=== PATIENT | female | born 1945 | race Caucasian/White ===

== ENCOUNTER 2022-07-24 13:31 | Outpatient (REF) | payer MEDICARE, SELFPAY ==
--- NOTE | ~2022-07-24 | MM_ITS ---
EXAMINATION: MM SCREENING DIGITAL BREAST TOMOSYNTHESIS, BILATERAL CLINICAL INFORMATION: Screening. Asymptomatic. The lifetime risk of breast cancer based on the Tyrer-Cuzick Model is 3%. COMPARISON: Multiple prior mammography exams including most recent 03/18/2019. TECHNIQUE: Digital breast tomosynthesis is performed in both the craniocaudal and mediolateral oblique views along with computer-aided detection (CAD). Synthesized 2D images are generated from the tomosynthesis. FINDINGS: There are scattered areas of fibroglandular density (ACR BI-RADS breast composition Category b). There are no significant masses, abnormal calcifications, or other abnormalities. Parenchymal pattern is similar to prior studies. There is a chronic minor parenchymal asymmetry medial right breast similar to prior studies. There is no developing density or architectural abnormality. The axilla and skin contours are unremarkable. No significant changes. MM/MM tomosynthesis screening BI IMPRESSION: No mammographic evidence of malignancy. ASSESSMENT: BI-RADS 2: Benign RECOMMENDATION: Routine annual mammography screening. This patient's information was entered into a reminder system with a target due date for their next mammogram.
== END 2022-07-24 13:32 | disposition home or self-care (01) ==
LOC: HO.MAMMO 13:31
PROVIDERS: PCP Internal Medicine; Visit Provider Internal Medicine
DX: Z12.31 Encounter for screening mammogram for malignant neoplasm of breast (principal)
CPT/HCPCS: 77063; 77067

== ENCOUNTER 2023-05-09 16:43 | Emergency (ER) | payer MEDICARE, SELFPAY ==
--- NOTE | ~2023-05-09 | CT_ITS ---
EXAMINATION: CT ABDOMEN AND PELVIS WITHOUT CONTRAST CLINICAL INFORMATION: Upper abdominal pain COMPARISON: None available. TECHNIQUE: Multidetector volumetric imaging was performed from the superior aspect of the liver through the pubic symphysis. Sagittal and coronal reformatted images were obtained on the technologist's workstation. This CT examination was performed using dose optimization techniques as appropriate, variously including the following: *Automated exposure control *Adjustment of mA and/or kV according to patient size (this includes techniques or standardized protocols for targeted exams where dose is matched to indication/reason for exam; i.e. extremities or head) *Use of iterative reconstruction technique DLP: 860 mGy-cm FINDINGS: LUNG BASES: The visualized lung bases are unremarkable. LIVER, GALLBLADDER, AND BILIARY TREE: The liver is normal in size, shape, and attenuation. No focal hepatic lesion or biliary ductal dilatation is present. Gall stones. PANCREAS: Unremarkable. SPLEEN: Unremarkable. ADRENAL GLANDS: Unremarkable. KIDNEYS AND URETERS: The kidneys are normal in size, shape, and attenuation. No hydronephrosis, hydroureter, or calculi seen. No perinephric stranding. BLADDER: Unremarkable. GASTROINTESTINAL TRACT: Constipation. The small and large bowel are otherwise unremarkable. The appendix is is not seen and may been removed. ABDOMINAL WALL: No significant hernia is appreciated. LYMPH NODES: Normal. VASCULAR: Atherosclerotic disease. PELVIC VISCERA: Unremarkable. OSSEOUS STRUCTURES: Old displaced right femoral neck fracture. Large complex right hip joint effusion. Question old trauma to the pelvis. 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 Osteopenia. Probable L4 hemangioma. CT/CT abdomen pelvis wo IV con IMPRESSION: Gallstones. Constipation. Old trauma to the right hip and pelvis. Fleischner guidelines were followed.
[2023-05-09 16:59] VITALS: BP 159/72; PULSE 87; RESP 16; TEMP 37; O2SAT 95
[2023-05-09 17:05] VITALS: BP 160/72; PULSE 80; BMI 27.8
--- NOTE | 2023-05-09 17:05 | ED_ITS ---
HPI - Abdominal Pain General Chief Complaint: Abdominal Pain Stated Complaint: abdominal pain upon ambulation. No BM x48 hrs Time Seen by Provider: 05/09/23 17:04 Source: patient Mode of arrival: EMS Limitations: no limitations History of Present Illness HPI narrative: Patient history of MS in remission history of constipation complaining of upper abdominal pain for last 2 weeks does not remember when she had the bowel movement no nausea no vomiting no urinary complaints Related Data Previous Rx's Medication Instructions Recorded polyethylene glycol 3350 17 17 g PO DAILY PRN constipation 05/09/23 gram/dose oral powder (Miralax) #510 grams Allergies Allergy/AdvReac Type Severity Reaction Status Date / Time azithromycin Allergy Severe DIZZINESS, Verified 05/09/23 17:43 [From ZITHROMAX Z-BEBETO] NAUSEA, DIARRHEA, HADACHE Review of Systems Review of Systems Yes all other systems are reviewed and are negative [facility] Social History Social History Smoked in Last 30 Days: No Use of substances other than those prescribed or required for medical reasons: No Advance Directives: No Advance Directives Information Provided: No Physical Exam ED Vital Signs: Vital Signs - 24 hr 05/09/23 16:59 05/09/23 20:35 05/09/23 22:29 Temperature 98.6 F 98.6 F 98.6 F Pulse Rate 87 84 84 Respiratory Rate 16 16 16 Blood Pressure 159/72 H 157/58 H 157/58 H Pulse Oximetry 95 92 92 Oxygen Delivery Method Room Air Room Air Room Air BMI result Body Mass Index 27.8 Appearance: Alert. Oriented X3. No acute distress. Eyes: No pallor ENT: Pharynx normal. Oral Mucosa moist Neck: Normal inspection. Neck supple. CVS: Normal heart rate and rhythm. Pulses normal. Respiratory: No respiratory distress. Equal air entry bilateral, no wheezing/rales/rhonchi Abdomen: Soft and nontender. Mild epigastric tenderness no rebound tenderness Bowel sounds are present, no mass palpable, no CVA tenderness Skin: Skin warm and dry. Normal skin color. Normal skin turgor. Extremities: No lower extremity edema. No calf tenderness Neuro: Oriented X 3. No motor deficit. Medical Decision Making Medical Decision Making MDM Narrative: Patient with known specific abdominal pain CT scan negative except for stool patient was given stool softener discharge patient home Differential Diagnosis Differential Diagnoses: The differential diagnosis associated with the presentation includes Diverticulitis/constipation/partial bowel obstruction Lab Data MDM Lab Attestation statement: I reviewed the patient's lab results. 05/09/23 17:41 05/09/23 17:41 Labs: Lab Results 05/09/23 Range/Units 17:41 WBC 6.8 (4.8-10.8) X10*3/uL RBC 4.23 (4.20-5.50) X10*6/uL Hgb 11.8 L (12.0-16.0) g/dl Hct 36.8 L (37.0-47.0) % MCV 87.0 (80.0-98.0) fL MCH 27.9 (27.0-33.0) pg MCHC 32.1 (31.0-35.0) g/dl RDW 13.8 (11.0-16.0) % Plt Count 220 (160-400) X10*3/uL MPV 8.6 L (9.4-12.3) fL Immature Gran % (Auto) 0.6 H (0.0-0.4) % Neut % (Auto) 80.7 H (45-73) % Lymph % (Auto) 9.2 L (20-40) % Bee % (Auto) 8.6 (2-11) % Eos % (Auto) 0.3 (0-4) % Baso % (Auto) 0.6 (0-2) % Lymph # (Auto) 0.6 L (1.2-4.9) X10*3/uL Bee # (Auto) 0.6 (0.1-1.2) X10*3/uL Eos # (Auto) 0.0 (0.0-0.4) X10*3/uL Baso # (Auto) 0.0 (0.0-0.2) X10*3/uL Abs Immat Gran (auto) 0.04 H (0.00-0.03) X10*3/uL Absolute Neuts (auto) 5.5 (2.0-8.3) x10*3/uL Absolute Nucleated RBC 0.000 (0.0-0.012) X10*3/uL Nucleated RBC % (auto) 0.0 (0.0-0.2) /100WBC Sodium 143 (135-145) mmol/L Potassium 3.0 L (3.3-5.1) mmol/L Chloride 103 (96-108) mmol/L Carbon Dioxide 31 H (22-29) mmol/L Anion Gap 12 (12-20) BUN 9 (9-16) mg/dL Creatinine 0.67 (0.5-1.4) mg/dL Estim Creat Clear Calc 70.5 Estimated GFR > 60 Random Glucose 108 (60-115) mg/dL Calcium 8.8 (8.4-10.2) mg/dL Total Bilirubin 0.8 (0.0-1.0) mg/dL AST 23 (5-31) U/L ALT 20 (0-31) U/L Alkaline Phosphatase 91 (39-117) U/L Total Protein 6.5 (6.5-8.0) g/dL Albumin 3.4 L (3.5-5.0) g/dL Lipase 8 (8-78) U/L Independent Interpretation I performed an independent interpretation of an: CT Scan Radiology Impression Discussion of test interpretation with radiology: I have reviewed the radiologist's reading. Medications Administered Discontinued Medications Generic Name Dose Route Start Last Admin Trade Name Freq PRN Reason Stop Dose Admin Sodium Chloride 1,000 mls @ 999 mls/hr 05/09/23 17:12 05/09/23 19:19 Ns IV 05/09/23 18:12 Infused .Q1H1M ONE Infusion Magnesium Hydroxide 30 ml 05/09/23 18:54 05/09/23 19:27 Milk Of Magnesia 30 Ml Oral.Susp PO 05/09/23 18:55 30 ml ONCE ONE Administration Potassium Bicarbonate 25 meq 05/09/23 18:54 05/09/23 19:27 Potassium Bicarbonate/Cit Ac 25 Meq Tablet.Eff PO 05/09/23 18:55 25 meq ONCE ONE Administration Discharge Plan Discharge Clinical Impression: Abdominal pain, Constipation Patient Disposition: Home, Self-Care Instructions: Constipation (ED) Prescriptions: New polyethylene glycol 3350 [Miralax] 17 gram/dose powder 17 g PO DAILY PRN (Reason: constipation) Qty: 510 0RF Interventions: ED Discharge Assessment Last Done: 05/09/23 22:29 Discharge Date/Time: 05/09/23 22:31
[2023-05-09] MEDS: 0.9 % Sodium Chloride 1,000 ML 999 ML IV (17:43)
[2023-05-09 17:46] LABS: MANUAL DIFF FLAG NO
[2023-05-09 17:48] LABS: Basophils Percent Auto 0.6 % (0-2); Eosinophils Percent Auto 0.3 % (0-4); Hematocrit 36.8 % (37.0-47.0); Hemoglobin 11.8 g/dl (12.0-16.0); Imm Gran Abs Auto 0.04 X10*3/uL (0.00-0.03); Imm Gran Pct Auto 0.6 % (0.0-0.4); Lymphocytes Absolute Auto 0.6 X10*3/uL (1.2-4.9); Lymphocytes Percent Auto 9.2 % (20-40); Mean Corpuscular HGB Conc 32.1 g/dl (31.0-35.0); Mean Corpuscular Hemoglobin 27.9 pg (27.0-33.0); Mean Platelet Volume 8.6 fL (9.4-12.3); Monocytes Absolute Auto 0.6 X10*3/uL (0.1-1.2); Monocytes Percent Auto 8.6 % (2-11); Neutrophils Absolute Auto 5.5 x10*3/uL (2.0-8.3); Neutrophils Percent Auto 80.7 % (45-73); Platelet Count 220 X10*3/uL (160-400); Red Blood Count 4.23 X10*6/uL (4.20-5.50); Red Cell Distribution Width 13.8 % (11.0-16.0); White Blood Count 6.8 X10*3/uL (4.8-10.8)
[2023-05-09 18:01] LABS: Alanine Aminotransferase 20 U/L (0-31); Albumin Level 3.4 g/dL (3.5-5.0); Alkaline Phosphatase 91 U/L (39-117); Anion Gap 12 (12-20); Aspartate Amino Transferase 23 U/L (5-31); Bilirubin Total 0.8 mg/dL (0.0-1.0); Blood Urea Nitrogen 9 mg/dL (9-16); Calcium 8.8 mg/dL (8.4-10.2); Carbon Dioxide 31 mmol/L (22-29); Chloride 103 mmol/L (96-108); Creatinine Clr Calc Pharmacy 70.5; Estimated Glomerular Filt Rate > 60; Glucose Random 108 mg/dL (60-115); Lipase 8 U/L (8-78); Sodium 143 mmol/L (135-145); Total Protein 6.5 g/dL (6.5-8.0)
[2023-05-09] MEDS: Potassium Bicarbonate/Cit AC 25 MEQ TABLET.EFF PO (19:27)
[2023-05-09] MEDS: Milk of Magnesia 30 ML ORAL.SUSP PO (19:27)
--- NOTE | 2023-05-09 19:53 | PC.NURSE ---
Pt had an episode of incontinence while waiting for assistance with commode. Stevie and RN cleaned pt and placed her on a purewick. Pt medicated per APR. IV in tact in the left AC. Pt is A&Ox4, GCS 15.
[2023-05-09 20:35] VITALS: BP 157/58; PULSE 84; RESP 16; TEMP 37; O2SAT 92
[2023-05-09 22:29] VITALS: BP 157/58; PULSE 84; RESP 16; TEMP 37; O2SAT 92
== END 2023-05-09 22:31 | disposition home or self-care (01) ==
PROVIDERS: Emergency Provider Internal Medicine; PCP Internal Medicine
DX: R10.10 Upper abdominal pain, unspecified (principal); K59.00 Constipation, unspecified
CPT/HCPCS: 36415; 74176; 80053; 83690; 85025; 96360; 96361; 99284

== ENCOUNTER 2023-11-30 18:41 | Emergency (ER) | payer MEDICARE, SELFPAY ==
--- NOTE | ~2023-11-30 | XR_ITS ---
EXAMINATION: XR KNEE, RIGHT CLINICAL INFORMATION: Fall. COMPARISON: None available. TECHNIQUE: 5 views of the right knee. FINDINGS: No fracture or joint effusion. Alignment is anatomic. Joint spaces are maintained. No abnormal soft tissue calcification. XR/XR knee RT 3V IMPRESSION: Normal right knee. Electronically signed by: Naresh Mckeon MD 11/30/2023 09:18 PM EDT
[2023-11-30 19:04] VITALS: BP 120/80; PULSE 105; O2SAT 95
[2023-11-30 19:16] VITALS: BP 148/67; PULSE 93; RESP 18; TEMP 36.4; O2SAT 94; BMI 31.0
--- NOTE | 2023-11-30 19:44 | ED_ITS ---
HPI - Fall General Chief Complaint: Fall Stated Complaint: weakness MS, repeated falls, increased weakness Time Seen by Provider: 11/30/23 18:46 Source: patient Mode of arrival: EMS Limitations: no limitations History of Present Illness ED Provider: charmaine KENNY Narrative: Patient is 78 years old with osteoarthritis, MS nonambulatory for last 6 months lives alone at home with minimal help from neighbors comes here as while getting to the commode which was next to her bed she fell on complaining of pain in the right knee which is always have pain. According to health proxy patient lives alone not listening to the and does not eat much no help and they are requesting her to go to rehab Related Data Previous Rx's ?Medication ?Instructions ?Recorded polyethylene glycol 3350 17 17 g PO DAILY PRN constipation 05/09/23 gram/dose oral powder (Miralax) #510 grams Allergies Allergy/AdvReac Type Severity Reaction Status Date / Time azithromycin Allergy Severe DIZZINESS, Verified 11/30/23 19:17 [From ZITHROMAX Z-BEBETO] NAUSEA, DIARRHEA, HADACHE Review of Systems 2 Review of Systems: Yes all other systems are reviewed and are negative [facility] Social History Social History Advance Directives: No Advance Directives Information Provided: No Do you have a plan to hurt others: No Plan Physical Exam 2 Vital Signs: Vital Signs: Last Vital Signs Temp 97.5 F 11/30/23 21:08 Pulse 85 11/30/23 21:08 Resp 16 11/30/23 21:08 BP 152/64 H 11/30/23 21:08 Pulse Ox 97 11/30/23 21:08 O2 Del Method Room Air 11/30/23 19:16 BMI result Body Mass Index 31.0 Appearance: Alert. Oriented X2-3. No acute distress. Eyes: No pallor or icterus ENT: Pharynx normal. Oral Mucosa moist Neck: Normal inspection. Neck supple. CVS: Normal heart rate and rhythm. Pulses normal. Respiratory: No respiratory distress. Equal air entry bilateral, no wheezing/rales/rhonchi Abdomen: Soft and nontender. Bowel sounds are present, no mass palpable, no CVA tenderness Skin: Skin warm and dry. Normal skin color. Normal skin turgor. Extremities: No lower extremity edema. No calf tenderness right knee diffuse tenderness with effusion no deformity Neuro: Oriented X 2-3. No motor deficit. Medical Decision Making Medical Decision Making [facility] Narrative: Case discussed with patient's health proxy Reid Hazel phone #[phone] also with Charlene Hazel phone number [phone] prefer patient to go to rehab as patient lives alone and does not have any help and not been walking for last 6 months UA showed UTI will start on Ceftin Differential Diagnosis Differential Diagnoses: The differential diagnosis associated with the presentation includes Metabolic Lab Data [facility] Lab Attestation statement: I reviewed the patient's lab results. 11/30/23 21:15 11/30/23 21:15 Labs: Lab Results 11/30/23 Range/Units 21:15 WBC 11.5 H (4.8-10.8) X10*3/uL RBC 4.45 (4.20-5.50) X10*6/uL Hgb 12.5 (12.0-16.0) g/dl Hct 38.3 (37.0-47.0) % MCV 86.1 (80.0-98.0) fL MCH 28.1 (27.0-33.0) pg MCHC 32.6 (31.0-35.0) g/dl RDW 13.7 (11.0-16.0) % Plt Count 373 D (160-400) X10*3/uL MPV 8.9 L (9.4-12.3) fL Immature Gran % (Auto) 0.6 H (0.0-0.4) % Neut % (Auto) 81.4 H (45-73) % Lymph % (Auto) 6.4 L (20-40) % Mayes % (Auto) 10.8 (2-11) % Eos % (Auto) 0.4 (0-4) % Baso % (Auto) 0.4 (0-2) % Lymph # (Auto) 0.7 L (1.2-4.9) X10*3/uL Mayes # (Auto) 1.2 (0.1-1.2) X10*3/uL Eos # (Auto) 0.1 (0.0-0.4) X10*3/uL Baso # (Auto) 0.1 (0.0-0.2) X10*3/uL Abs Immat Gran (auto) 0.07 H (0.00-0.03) X10*3/uL Absolute Neuts (auto) 9.3 H (2.0-8.3) x10*3/uL Absolute Nucleated RBC 0.000 (0.0-0.012) X10*3/uL Nucleated RBC % (auto) 0.0 (0.0-0.2) /100WBC Sodium 140 (135-145) mmol/L Potassium 3.7 D (3.3-5.1) mmol/L Chloride 104 (96-108) mmol/L Carbon Dioxide 23 (22-29) mmol/L Anion Gap 17 (12-20) BUN 11 (9-16) mg/dL Creatinine 0.66 (0.5-1.4) mg/dL Estim Creat Clear Calc 71.6 Estimated GFR > 60 Random Glucose 101 (60-115) mg/dL Calcium 8.6 (8.4-10.2) mg/dL Total Bilirubin 0.7 (0.0-1.0) mg/dL AST 20 (5-31) U/L ALT 13 (0-31) U/L Alkaline Phosphatase 139 H (39-117) U/L Total Protein 6.9 (6.5-8.0) g/dL Albumin 3.7 (3.5-5.0) g/dL Urine Color Yellow Urine Appearance Clear Urine pH 6.0 (5.0-9.0) Ur Specific [place] 1.015 (1.005-1.025) Urine Protein 30 (1+) H (Neg-Trace) mg/dL Urine Glucose (UA) Negative (Negative) mg/dL Urine Ketones >=160 (Negative) mg/dL Urine Blood Trace H (Negative) Urine Nitrite Positive H (Negative) Ur Leukocyte Esterase Trace H (Negative) Urine RBC 3-5 H (0-2) /HPF Urine WBC 0-5 (0-5) /HPF Ur Squamous Epith Cells 0-2 (0-2) /HPF Urine Bacteria 4+ (None Seen) Hyaline Casts 0-2 (0-2) /LPF COVID-19 (HOLLY) Negative (Negative) COVID-19 Clin Com See Note Independent Interpretation I performed an independent interpretation of an: Plain X-Ray Radiology Impression Discussion of test interpretation with radiology: I have reviewed the radiologist's reading. Discharge Plan Discharge Clinical Impression: Weakness, Urinary tract infection, Arthritis, Multiple sclerosis Patient Disposition: Still a Patient Prescriptions: No Action polyethylene glycol 3350 [Miralax] 17 gram/dose powder 17 g PO DAILY PRN (Reason: constipation) Qty: 510 0RF Print Language: Serbian
--- NOTE | 2023-11-30 20:25 | ECG_ITS ---
Test Reason : FALL Blood Pressure : / mmHG Vent. Rate : 086 BPM Atrial Rate : 000 BPM P-R Int : 000 ms QRS Dur : 074 ms QT Int : 380 ms P-R-T Axes : 000 020 004 degrees QTc Int : 454 ms Poor data quality, interpretation may be adversely affected Normal sinus rhythm with PAC's Abnormal ECG When compared with ECG of 14-JUN-2015 11:21, No significant change was found Referred By: Aniceto Hankins Electronically Signed By:TREY HACKETT
[2023-11-30 21:08] VITALS: BP 152/64; PULSE 85; RESP 16; TEMP 36.4; O2SAT 97
[2023-11-30 21:21] LABS: MANUAL DIFF FLAG NO
[2023-11-30 21:23] LABS: Basophils Absolute Auto 0.1 X10*3/uL (0.0-0.2); Basophils Percent Auto 0.4 % (0-2); Eosinophils Absolute Auto 0.1 X10*3/uL (0.0-0.4); Eosinophils Percent Auto 0.4 % (0-4); Hematocrit 38.3 % (37.0-47.0); Hemoglobin 12.5 g/dl (12.0-16.0); Imm Gran Abs Auto 0.07 X10*3/uL (0.00-0.03); Imm Gran Pct Auto 0.6 % (0.0-0.4); Lymphocytes Absolute Auto 0.7 X10*3/uL (1.2-4.9); Lymphocytes Percent Auto 6.4 % (20-40); Mean Corpuscular HGB Conc 32.6 g/dl (31.0-35.0); Mean Corpuscular Hemoglobin 28.1 pg (27.0-33.0); Mean Corpuscular Volume 86.1 fL (80.0-98.0); Mean Platelet Volume 8.9 fL (9.4-12.3); Monocytes Absolute Auto 1.2 X10*3/uL (0.1-1.2); Monocytes Percent Auto 10.8 % (2-11); Neutrophils Absolute Auto 9.3 x10*3/uL (2.0-8.3); Neutrophils Percent Auto 81.4 % (45-73); Platelet Count 373 X10*3/uL (160-400); Red Blood Count 4.45 X10*6/uL (4.20-5.50); Red Cell Distribution Width 13.7 % (11.0-16.0); White Blood Count 11.5 X10*3/uL (4.8-10.8)
[2023-11-30 21:26] LABS: Appearance Urine Clear; Color Urine Yellow; Glucose Urine UA Negative (Negative); Leukocyte Esterase Urine Trace (Negative); Nitrite Urine Positive (Negative); Specific Gravity - Urine 1.015 (1.005-1.025); UMIC TRIGGER UACC YES; Urine Blood Trace (Negative); Urine Ketones >=160 mg/dL (Negative); Urine Protein 30 (1+) mg/dL (Neg-Trace)
--- NOTE | 2023-11-30 21:26 | MHC.EDTECH ---
This pct assumed care of Patient at 1930 ,vitals taken ,ekg done and was read by Provider ,blood drawn including covid swab and urine sample collected all sent to lab ,Pure wick was placed ,Patient had a sun butter and jelly sandwich ,pudding and apple juice for snack .All safety measure in Place .
[2023-11-30 21:31] LABS: Bacteria Urine 4+ (None Seen); Hyaline Casts Urine 0-2 /LPF (0-2); Squamous Epithelial Cell Urine 0-2 /HPF (0-2); UACC Culture Trigger YES; WBC Urine 0-5 /HPF (0-5)
[2023-11-30 21:37] LABS: Alanine Aminotransferase 13 U/L (0-31); Albumin Level 3.7 g/dL (3.5-5.0); Alkaline Phosphatase 139 U/L (39-117); Anion Gap 17 (12-20); Aspartate Amino Transferase 20 U/L (5-31); Bilirubin Total 0.7 mg/dL (0.0-1.0); Blood Urea Nitrogen 11 mg/dL (9-16); COVID-19 Test Negative (Negative); Calcium 8.6 mg/dL (8.4-10.2); Carbon Dioxide 23 mmol/L (22-29); Chloride 104 mmol/L (96-108); Creatinine Clr Calc Pharmacy 71.6; Estimated Glomerular Filt Rate > 60; Glucose Random 101 mg/dL (60-115); IDNOW Serial# 08D9AD1C; Potassium 3.7 mmol/L (3.3-5.1); Sodium 140 mmol/L (135-145); Total Protein 6.9 g/dL (6.5-8.0)
[2023-12-01] VITALS (7 sets, daily range): BP systolic 0–144; BP diastolic 0–64; PULSE 0–95; RESP 0–19; TEMP -17.7–36.4; O2SAT 0–99
[2023-12-01] MEDS: cefTRIAXone sodium 1 GM in 0.9 % Sodium Chloride 50 ML IV (03:19)
[2023-12-01] MEDS: 0.9 % Sodium Chloride 1,000 ML 999 ML IV (03:19)
--- NOTE | 2023-12-01 04:43 | PC.NURSE ---
Patient is alert and oriented x3. She reports chronic pain in right knee and lower back ranging from 3/10-8/10. Patient does not ambulates. She requires 1 assist for transfers from chair to bed. Patient positive UTI, medicated per MAR with bolus of 1 L NS and Ceftriaxone 1 Gm IV. Patient repositioned, right knee propped on pillow, pure wick in place, call cote in patient's reach, plan of car ongoing.
[2023-12-01] MEDS: cefuroxime axetiL 250 MG TABLET PO ×2 (08:55→20:14)
--- NOTE | 2023-12-01 14:05 | MHC.CM.ED ---
Received case management consult overnight. Patient came to the ER due to weakness. Work up essentially negative. Physical therapy eval completed. Rehab is recommended. Met with patient in regards to discharge planning. Patient lives alone, uses a walker for mobility, is active with [facility] for alf and physical therapy and has a home health aide. Patient is unsure which agency provides PHLEBOTOMIST PRN. PCP verified. Patient has not been inpatient in any facility in the past 30 days. Patient feels she will be able to participate in 3 hours of therapy a day. Referral sent to all 3 acute rehabs. [facility] able to offer a bed. [facility] is reviewing to see if they can offer a bed. Patient wants her bible and rosary before going to rehab.Patient feels her PHLEBOTOMIST PRN, Mar will be able to get these things for her but does not have her cellphone with her telephone number. T/W spoke with her friend, Charlene, via telephone at [phone]. Charlene will be able to contact Mar about getting patient's bible and rosary. Continue to monitor for d/c needs.
--- NOTE | 2023-12-01 14:46 | PC.NURSE ---
Pt. had bowel movement on bed roth. Incontinence care provided
--- NOTE | 2023-12-01 14:46 | PC.NURSE ---
Purewick remains in place
--- NOTE | 2023-12-01 15:34 | MHC.CM.ED ---
Patient has been accepted at [facility]. Patient can leave at 7pm. Tayler KIRAN booked. Med nec with chart. Patient, Josee NGUYỄN and Kanwal EDGE aware. Continue to monitor for d/c needs.
--- NOTE | 2023-12-01 17:54 | MHC.EDTECH ---
This pct assumed care of Patient at 1500 ,vitals taken ,Patient refused supper ,RN AWARE ,Patient clean and dry .
--- NOTE | 2023-12-01 19:18 | MHC.EDTECH ---
moisture barrier cream was placed on groin folds after cleaning well d/t redness and irritation. RN was made aware. pt no longer in discomfort.
== END 2023-12-01 22:00 | disposition home or self-care (01) ==
PROVIDERS: Emergency Provider Internal Medicine; PCP Internal Medicine
DX: N39.0 Urinary tract infection, site not specified (principal); R53.1 Weakness; G35 Multiple sclerosis; R26.2 Difficulty in walking, not elsewhere classified; M25.561 Pain in right knee; R94.31 Abnormal electrocardiogram [ECG] [EKG]; I10 Essential (primary) hypertension; Z11.52 Encounter for screening for COVID-19; Z79.899 Other long term (current) drug therapy
CPT/HCPCS: 73562; 80053; 81001; 85025; 87086; 87088; 87186; 87635; 93005; 96361; 96365; 97162; 99285; J0696

== ENCOUNTER 2023-12-17 16:32 | Emergency (ER) | payer MEDICARE, SELFPAY ==
[2023-12-17] VITALS (7 sets, daily range): BP systolic 132–145; BP diastolic 53–82; PULSE 72–130; RESP 15–17; TEMP 36.3–37.1; O2SAT 94–98; BMI 32.9
[2023-12-17 17:51] LABS: Basophils Percent Auto 0.1 % (0-2); Hematocrit 36.2 % (37.0-47.0); Lymphocytes Absolute Auto 0.4 X10*3/uL (1.2-4.9); Lymphocytes Percent Auto 3.7 % (20-40); MANUAL DIFF FLAG SCAN; Mean Corpuscular HGB Conc 33.1 g/dl (31.0-35.0); Mean Corpuscular Hemoglobin 28.5 pg (27.0-33.0); Mean Platelet Volume 9.4 fL (9.4-12.3); Monocytes Absolute Auto 0.1 X10*3/uL (0.1-1.2); Monocytes Percent Auto 1.5 % (2-11); Neutrophils Absolute Auto 8.9 x10*3/uL (2.0-8.3); Neutrophils Percent Auto 93.7 % (45-73); Platelet Count 319 X10*3/uL (160-400); Red Blood Count 4.21 X10*6/uL (4.20-5.50); Red Cell Distribution Width 14.3 % (11.0-16.0); SCAN SMEAR FLAG 1; White Blood Count 9.5 X10*3/uL (4.8-10.8)
[2023-12-17 17:58] LABS: Alanine Aminotransferase 19 U/L (0-31); Albumin Level 3.3 g/dL (3.5-5.0); Alkaline Phosphatase 151 U/L (39-117); Anion Gap 12 (12-20); Aspartate Amino Transferase 23 U/L (5-31); Bilirubin Total 0.2 mg/dL (0.0-1.0); Blood Urea Nitrogen 23 mg/dL (9-16); Calcium 9.1 mg/dL (8.4-10.2); Carbon Dioxide 28 mmol/L (22-29); Chloride 107 mmol/L (96-108); Creatinine Clr Calc Pharmacy 90.1; Estimated Glomerular Filt Rate > 60; Glucose Random 149 mg/dL (60-115); Magnesium 2.1 mg/dL (1.6-2.6); Potassium 3.6 mmol/L (3.3-5.1); Sodium 143 mmol/L (135-145); Total Protein 6.1 g/dL (6.5-8.0)
[2023-12-17 18:11] LABS: SLIDE REVIEW VERIFIED
--- NOTE | 2023-12-17 18:12 | ED.GENADULT ---
HPI - General Adult General Chief complaint: General Medical Stated complaint: weakness in legs, has ms, d/c from rehab today Time Seen by Provider: 12/17/23 16:56 Source: patient Limitations: no limitations History of Present Illness ED Provider: Jonna Renee PA-C HPI narrative: 78-year-old female with a history of osteoarthritis, MS nonambulatory for last 6 months who lives alone at home with minimal services to the home, presents secondary to weakness. Patient was seen here in the emergency room the beginning of November after sustaining a mechanical fall, she was placed in a rehab center. Patient was just discharged from [facility] earlier today, she was discharged home, without any active services today. Patient states she is supposed to have [facility] come tomorrow. We will transferring to her commode, patient states she was unable to complete the transfer and lowered herself to the ground. She is adamant that she did not fall. Patient also states she is currently being treated for a urinary tract infection. She denies belly pain, fever, nausea, vomiting. Related Data Home Medications ?Medication ?Instructions ?Recorded ?Confirmed clonazepam 1 mg tablet 1 mg PO TID PRN Anxiety 12/18/23 12/18/23 gabapentin 100 mg capsule 100 mg PO TID 12/18/23 12/18/23 Previous Rx's ?Medication ?Instructions ?Recorded polyethylene glycol 3350 17 17 g PO DAILY PRN constipation 05/09/23 gram/dose oral powder (Miralax) #510 grams Allergies Allergy/AdvReac Type Severity Reaction Status Date / Time azithromycin Allergy Severe DIZZINESS, Verified 12/17/23 16:51 [From ZITHROMAX Z-BEBETO] NAUSEA, DIARRHEA, HADACHE Review of Systems Review of Systems: Yes all other systems are reviewed and are negative Constitutional: Constitutional: Denies fatigue and Denies fever(s) Cardiovascular: Cardiovascular: Denies chest pain and Denies dyspnea Respiratory: Respiratory: Denies cough and Denies dyspnea Gastrointestinal: Gastrointestinal: Denies abdominal pain, Denies nausea and Denies vomiting Endocrine: Endocrine: Denies fatigue PMFSH Past Medical History Attestation statement: The following information was validated with the patient. Social History Social History Alcohol intake: never Advance Directives: No Advance Directives Information Provided: No Do you have a plan to hurt others: No Plan Physical Exam ED Vital Signs: Vital Signs - 24 hr 12/17/23 16:48 12/17/23 18:28 12/17/23 18:53 Temperature 98.7 F 97.7 F 97.3 F Pulse Rate 77 74 72 Respiratory Rate 16 16 17 Blood Pressure 145/53 H 132/61 145/65 H Pulse Oximetry 97 96 94 Oxygen Delivery Method Room Air Room Air Room Air 12/17/23 20:00 12/17/23 21:55 12/18/23 04:46 Temperature 97.4 F 97.4 F 97.5 F Pulse Rate 75 79 65 Respiratory Rate 16 15 18 Blood Pressure 140/65 H 132/53 L 152/70 H Pulse Oximetry 98 96 98 Oxygen Delivery Method Room Air Room Air Room Air 12/18/23 09:26 Temperature Pulse Rate 65 Respiratory Rate Blood Pressure 152/70 H Pulse Oximetry 98 Oxygen Delivery Method BMI result Body Mass Index 32.9 Const Other: Alert, overall well in appearance Orientation/consciousness: patient oriented x3 Resp Other: Nonlabored respiration Cardio Other: Normal peripheral perfusion Skin Other: Warm dry no rash Neuro General: patient oriented x3, no focal motor deficits and CN's II-XI intact bilaterally Extrem Other: Was extremities independently well in bed Psych Other: Calm cooperative Course Reevaluation(s) Additional Reevaluation(s): 12/18/23--744--physician observation continued. Vital signs stable. Labs reviewed. Patient currently being treated for UTI outpatient. Pending case management eval. Will continue to monitor for disposition Physician observation completed at 1700 on 12/18/2023. [facility] via BLS at 17:00. Patient does not meet medical necessity for hospitalization. Final disposition discussed with patient and family who verbalized understanding and are in agreement. Medications Administered Generic Name Dose Route Start Last Admin Trade Name Freq PRN Reason Stop Dose Admin Cephalexin HCl 500 mg 12/17/23 21:00 12/18/23 09:56 Cephalexin 500 Mg Capsule PO 12/24/23 20:59 500 mg BID NICHOLAS Administration Gabapentin 100 mg 12/18/23 10:00 12/18/23 10:21 Gabapentin 100 Mg Capsule PO 100 mg TID NICHOLAS Administration Discontinued Medications Generic Name Dose Route Start Last Admin Trade Name Freq PRN Reason Stop Dose Admin Cephalexin HCl 500 mg 12/17/23 20:33 12/17/23 23:02 Cephalexin 500 Mg Capsule PO 12/17/23 20:34 Not Given ONCE ONE Medical Decision Making Medical Decision Making [facility] Narrative: 78-year-old female with a history of osteoarthritis, MS nonambulatory for last 6 months who lives alone at home with minimal services to the home, presents secondary to weakness. Patient was seen here in the emergency room the beginning of November after sustaining a mechanical fall, she was placed in a rehab center. Patient was just discharged from [facility] earlier today, she was discharged home, without any active services today. Patient states she is supposed to have VNA come tomorrow. We will transferring to her commode, patient states she was unable to complete the transfer and lowered herself to the ground. She is adamant that she did not fall. Patient also states she is currently being treated for a urinary tract infection. She denies belly pain, fever, nausea, vomiting. Problem: Age, gait instability, arthritis, MS History: Per patient I have considered the following differential diagnoses: Deconditioning, failure to thrive, urosepsis, MS exacerbation Plan: The patient was discharged inappropriately, she does not have new illness, she is being treated for a urinary tract infection, she has no physical concerns or complaints. She will have to be held over for case management and physical therapy to be placed again in a rehab. She understands we need to perform a medical clearance, including labs and a UA. I have independently reviewed the following tests: Labs: No leukocytosis, not anemic, no electrolyte abnormality, urine stone infected which is to be expected when her medication reconciliation is complete I will be sure that the antibiotics are included. Lab Data 12/17/23 17:36 12/17/23 17:36 Labs: Lab Results 12/17/23 12/18/23 12/18/23 Range/Units 17:36 09:31 09:56 WBC 9.5 (4.8-10.8) X10*3/uL RBC 4.21 (4.20-5.50) X10*6/uL Hgb 12.0 (12.0-16.0) g/dl Hct 36.2 L (37.0-47.0) % MCV 86.0 (80.0-98.0) fL MCH 28.5 (27.0-33.0) pg MCHC 33.1 (31.0-35.0) g/dl RDW 14.3 (11.0-16.0) % Plt Count 319 (160-400) X10*3/uL MPV 9.4 (9.4-12.3) fL Immature Gran % (Auto) 1.0 H (0.0-0.4) % Neut % (Auto) 93.7 H (45-73) % Lymph % (Auto) 3.7 L (20-40) % [place] % (Auto) 1.5 L (2-11) % Eos % (Auto) 0.0 (0-4) % Baso % (Auto) 0.1 (0-2) % Lymph # (Auto) 0.4 L (1.2-4.9) X10*3/uL [place] # (Auto) 0.1 (0.1-1.2) X10*3/uL Eos # (Auto) 0.0 (0.0-0.4) X10*3/uL Baso # (Auto) 0.0 (0.0-0.2) X10*3/uL Abs Immat Gran (auto) 0.10 H (0.00-0.03) X10*3/uL Absolute Neuts (auto) 8.9 H (2.0-8.3) x10*3/uL Absolute Nucleated RBC 0.000 (0.0-0.012) X10*3/uL Nucleated RBC % (auto) 0.0 (0.0-0.2) /100WBC Smear Tech's Comments VERIFIED Sodium 143 (135-145) mmol/L Potassium 3.6 (3.3-5.1) mmol/L Chloride 107 (96-108) mmol/L Carbon Dioxide 28 (22-29) mmol/L Anion Gap 12 (12-20) BUN 23 H (9-16) mg/dL Creatinine 0.54 (0.5-1.4) mg/dL Estim Creat Clear Calc 90.1 Estimated GFR > 60 Random Glucose 149 H (60-115) mg/dL Calcium 9.1 (8.4-10.2) mg/dL Magnesium 2.1 (1.6-2.6) mg/dL Total Bilirubin 0.2 (0.0-1.0) mg/dL AST 23 (5-31) U/L ALT 19 (0-31) U/L Alkaline Phosphatase 151 H (39-117) U/L Total Protein 6.1 L (6.5-8.0) g/dL Albumin 3.3 L (3.5-5.0) g/dL Urine Color Yellow Urine Appearance Clear Urine pH 6.0 (5.0-9.0) Ur Specific [place]win 1.025 (1.005-1.025) Urine Protein Trace (Neg-Trace) mg/dL Urine Glucose (UA) Negative (Negative) mg/dL Urine Ketones Negative (Negative) mg/dL Urine Blood Negative (Negative) Urine Nitrite Negative (Negative) Ur Leukocyte Esterase Trace H (Negative) Urine RBC 0-2 (0-2) /HPF Urine WBC 0-5 (0-5) /HPF Ur Squamous Epith Cells 3-5 (0-2) /HPF Urine Bacteria Trace (None Seen) Hyaline Casts 0-2 (0-2) /LPF COVID-19 (HOLLY) Negative (Negative) COVID-19 Clin Com See Note Discharge Plan Discharge Clinical Impression: Physical deconditioning Urinary tract infection Qualifiers: Urinary tract infection type: site unspecified Hematuria presence: without hematuria Qualified Code(s): N39.0 - Urinary tract infection, site not specified Patient Disposition: Xfer Inpatient Rehab Fac Transfer Details: TO: [facility], [address] [place] [address] LAUREL HUYNH MA, Prescriptions: No Action polyethylene glycol 3350 [Miralax] 17 gram/dose powder 17 g PO DAILY PRN (Reason: constipation) Qty: 510 0RF clonazepam 1 mg tablet 1 mg PO TID PRN (Reason: Anxiety) gabapentin 100 mg capsule 100 mg PO TID Referrals: [facility] [Other] Jessica Downing MD [Primary Care Provider] - Print Language: Lebanese
[2023-12-17] MEDS: cephALEXin 500 MG CAPSULE PO (22:42)
--- NOTE | 2023-12-17 23:18 | PC.NURSE ---
This RN received report and took of care of patient at this time.
--- NOTE | 2023-12-18 02:46 | PC.NURSE ---
Pt asleep, resting comfortably
[2023-12-18 04:46] VITALS: BP 152/70; PULSE 65; RESP 18; TEMP 36.4; O2SAT 98
--- NOTE | 2023-12-18 08:48 | MHC.EDTECH ---
Pt ate 50% of her breakfast. Apple juice left at bedside for later. Fresh water given to Pt
[2023-12-18 09:26] VITALS: BP 152/70; PULSE 65; O2SAT 98
[2023-12-18 09:56] LABS: COVID-19 Test Negative (Negative); IDNOW Serial# 08D9AD1C
[2023-12-18] MEDS: cephALEXin 500 MG CAPSULE PO (09:56)
[2023-12-18 10:07] LABS: Appearance Urine Clear; Color Urine Yellow; Glucose Urine UA Negative (Negative); Leukocyte Esterase Urine Trace (Negative); Nitrite Urine Negative (Negative); Specific Gravity - Urine 1.025 (1.005-1.025); UMIC TRIGGER UACC YES; Urine Blood Negative (Negative); Urine Ketones Negative (Negative); Urine Protein Trace mg/dL (Neg-Trace)
[2023-12-18 10:09] LABS: Bacteria Urine Trace (None Seen); Hyaline Casts Urine 0-2 /LPF (0-2); RBC Urine 0-2 /HPF (0-2); WBC Urine 0-5 /HPF (0-5)
[2023-12-18] MEDS: Gabapentin 100 MG CAPSULE PO ×2 (10:21→14:55)
--- NOTE | 2023-12-18 12:35 | MHC.CM.ED ---
Received case management consult overnight. Patient came to the ER after a fall. Patient was at [facility] from 11/30-12/16. Per Nata at [facility], patient was encouraged to transition to STR at a SNF. Patient declined at that time and d/c'd home. Patient returned to ER after a fall. Work up essentially negative. Physical therapy eval completed. Short term rehab is recommended. Met with patient in regards to discharge planning. Patient lives alone, is active with [facility] and has a home health aide. Patient is now agreeable to STR. Referral broadcasted in [facility]. Bed offers discussed with patient. Patient accepts bed at [facility] in [place]. Patient will transfer to their facility via [facility] at 5pm. [facility]. Patient, Geraldine NGUYỄN and Mary EDGE aware. Patient's friend, Charlene, made aware via telephone at [phone] and will ask patient's patient's home health aide, Mar to bring clothes for the patient, her rosary and bible at patient's request. Patient is active with [facility]. They have been made aware of d/c to [facility]. Continue to monitor for d/c needs.
[2023-12-18 14:00] VITALS: BP 134/65; PULSE 72; RESP 17; TEMP 36.2; O2SAT 96
[2023-12-18 17:20] VITALS: BP 134/65; PULSE 72; RESP 17; TEMP 36.2; O2SAT 96
--- NOTE | 2023-12-18 17:24 | PC.NURSE ---
Tried calling report to [facility] spoke to 1st floor they transferred me to W2 and I left a message for someone to call me back. Patient just picked up by [place].
== END 2023-12-18 17:27 ==
PROVIDERS: Physician Assistant; Physician Assistant Medical; Emergency Provider Student in an Organized Health Care Education/Training Program; PCP Internal Medicine
DX: R53.81 Other malaise (principal); N39.0 Urinary tract infection, site not specified; G35 Multiple sclerosis; Z79.899 Other long term (current) drug therapy; Z11.52 Encounter for screening for COVID-19
CPT/HCPCS: 36415; 80053; 81001; 83735; 85025; 87635; 97162; 99284